=== PATIENT | male | born 1955 | race Hispanic/Latino ===

== ENCOUNTER 2020-05-26 18:07 | Inpatient (IN) | payer MEDICARE ==
[~2020-05-26] VITALS: Ht 165.1 cm; Wt 81.9 kg
[2020-05-26] MEDS ORDERED: DILTIAZEM HCL 5 MG/ML 10 ML VIAL IV ONE ×2 (18:09→20:20)
[2020-05-26] MEDS ORDERED: DILTIAZEM HCL 125 MG/25 ML VIAL IV ONE (18:56)
[2020-05-26] MEDS ORDERED: CEFTRIAXONE SODIUM 1 GM ONE (19:00)
[2020-05-26 19:46] LABS: BASOPHILS % (AUTO) 0.2 % (0.0-5.0); HEMATOCRIT 43.3 % (42-54); MEAN CORPUSCULAR HEMOGLOBIN 29.3 pg (27.0-33.0); MEAN CORPUSCULAR HGB CONC 33.9 g/dL (32.0-36.0); MEAN CORPUSCULAR VOLUME 86.3 fL (79-99); MONOCYTES % (AUTO) 4.1 % (3.0-13.0); NEUTROPHILS % (AUTO) 89.6 % (40.0-77.0); PLATELET COUNT (AUTO) 348 K/uL (130-400); RED BLOOD CELL COUNT(AUTO) 5.02 MIL/uL (4.50-6.20); WHITE BLOOD COUNT (AUTO) 17.9 K/uL (4.8-10.8)
[2020-05-26 20:03] LABS: ABG BASE EXCESS -6.7 mmol/L (-2.0-3.0); ABG HCO3 17.1 mmol/L (21.0-28.0); ABG OXYGEN SATURATION 98.8 % (95.0-99.0); ABG PCO2 30 mmHg (35-48)
[2020-05-26 20:12] LABS: CREATININE 2.3 mg/dL (0.5-1.5); POTASSIUM 5.2 mmol/L (3.5-5.1)
[2020-05-26] MEDS ORDERED: METHYLPREDNISOLONE SOD SUCC 40MG/ML 1ML ONE (20:19)
[2020-05-26] MEDS ORDERED: ASPIRIN 325 MG TABLET ONE (20:19)
[2020-05-26 20:31] LABS: INR 1.12 (0.85-1.15); PARTIAL THROMBOPLASTIN TIME 33.7 SEC (26.3-35.5)
[2020-05-26 20:38] LABS: ALBUMIN 2.4 g/dL (3.5-5.0); BILIRUBIN,TOTAL 0.7 mg/dL (0.2-1.0); TOTAL PROTEIN, SERUM 7.7 g/dL (6.0-8.3); TROPONIN I 0.27 ng/mL (0.00-0.06)
[2020-05-26] MEDS ORDERED: SODIUM CHLORIDE 0.9% 500ML 500 ML IV ONE (20:42)
[2020-05-26] MEDS ORDERED: LACTULOSE 20 GM/30 ML UDCUP PO PRN (21:00)
[2020-05-26] MEDS ORDERED: METHYLPREDNISOLONE SOD SUCC 40MG/ML 1ML IVP SCH (21:00)
[2020-05-26] MEDS ORDERED: ACETAMINOPHEN 325 MG TAB PO PRN ×2 (21:00)
[2020-05-26] MEDS ORDERED: HYDRALAZINE HCL 20 MG/ML VIAL IV PRN (21:00)
[2020-05-26] MEDS ORDERED: DOXYCYCLINE 100MG+NS 250ML IV SCH (21:00)
[2020-05-26] MEDS ORDERED: ERGOCALCIFEROL (VITAMIN D2) 50,000 UNIT CAPSULE PO ONE (21:00)
[2020-05-26] MEDS: DOXYCYCLINE 100MG+NS 250ML 250 ML IV SCH (21:00)
[2020-05-26] MEDS ORDERED: ONDANSETRON HCL 4 MG/2 ML VIAL IV PRN (21:00)
[2020-05-26] MEDS ORDERED: AZITHROMYCIN 500MG+NS 250ML 250 ML IV ONE (21:04)
[2020-05-26] MEDS ORDERED: DILTIAZEM 125MG+100 ML NS 125 ML IV SCH (21:30)
[2020-05-26] MEDS: CEFTRIAXONE SODIUM 1 GM IVP SCH (22:10)
[2020-05-26 22:21] LABS: MAGNESIUM 2.7 mg/dL (1.80-2.40); PHOSPHORUS 4.7 mg/dL (2.5-4.9)
[2020-05-26 22:59] LABS: APPEARANCE,URINE Turbid (CLEAR); BILIRUBIN,URINE Small (NEGATIVE); COLOR,URINE Dark Yellow (YELLOW); GLUCOSE, URINE (UA) Negative (NEGATIVE); KETONES,URINE Trace mg/dL (NEGATIVE); LEUKOCYTE ESTERASE ,URINE Negative (NEGATIVE); NITRATE,URINE Negative (NEGATIVE); OCCULT BLOOD,URINE Small (NEGATIVE); PROTEIN,URINE POS 2+ mg/dL (NEGATIVE)
[2020-05-26] MEDS ORDERED: FUROSEMIDE 10 MG/ML 2ML VIAL ONE (23:04)
[2020-05-26 23:28] LABS: AMORPHOUS SEDIMENT,UR Moderate /LPF (None Seen); BACTERIA,URINE Few /HPF (None Seen); MUCUS,URINE Few LPF (None Seen); RBC,URINE 0-1 /HPF (0-1); SQUAMOUS EPITHELIAL CELL,UR Few /HPF (0-2); WBC,URINE None Seen /HPF (0-1)
[2020-05-27 01:39] LABS: HEMOGLOBIN A1C 6.5 % (4.0-6.0)
[2020-05-27] MEDS ORDERED: ENOXAPARIN SODIUM 60 MG/0.6 ML SQ ONE ×2 (04:44→10:37)
[2020-05-27] MEDS ORDERED: DOXYCYCLINE 100MG+NS 250ML 250 ML IV ONE ×2 (04:44→18:46)
[2020-05-27] MEDS ORDERED: METHYLPREDNISOLONE SOD SUCC 125MG/2ML VIAL ONE ×2 (04:44→21:35)
[2020-05-27] MEDS ORDERED: DILTIAZEM HCL 60 MG TABLET ONE ×2 (08:07→20:29)
[2020-05-27] MEDS ORDERED: DILTIAZEM HCL 60 MG TABLET PO SCH (08:15)
[2020-05-27 08:46] LABS: POTASSIUM 5.1 mmol/L (3.5-5.1); THYROID STIMULATING HORMONE 0.9 uIU/mL (0.36-3.74)
[2020-05-27] MEDS ORDERED: CEFTRIAXONE SODIUM 1 GM ONE ×2 (08:49→21:35)
[2020-05-27] MEDS ORDERED: ASCORBIC ACID 500 MG TAB ONE (08:49)
[2020-05-27] MEDS ORDERED: ZINC SULFATE 220 CAPSULE ONE (08:49)
[2020-05-27] MEDS ORDERED: SODIUM CHLORIDE 0.9% 100 ML IV ONE (08:50)
[2020-05-27] MEDS: ASCORBIC ACID 500 MG TAB PO SCH (09:00)
[2020-05-27] MEDS: ZINC SULFATE 220 CAPSULE PO SCH (09:00)
[2020-05-27] MEDS ORDERED: ENOXAPARIN SODIUM 40 MG/0.4 ML SYRINGE SQ SCH (09:00)
[2020-05-27] MEDS ORDERED: FUROSEMIDE 10 MG/ML 4ML VIAL IV SCH (09:30)
[2020-05-27 09:56] LABS: CRP QUANTITATIVE 348.7 mg/L (0.00-9.0)
[2020-05-27] MEDS ORDERED: PHARMACY COMMUNICATION MISC SCH (10:30)
[2020-05-27] MEDS ORDERED: ENOXAPARIN SODIUM 1 MG/KG SQ SCH (10:30)
[2020-05-27] MEDS ORDERED: FUROSEMIDE 10 MG/ML 4ML VIAL ONE (10:37)
[2020-05-27] MEDS ORDERED: ENOXAPARIN SODIUM 60 MG/0.6 ML SQ SCH (10:45)
[2020-05-27] MEDS: METOPROLOL TARTRATE 50 MG TAB PO SCH ×2 (12:00→21:00)
[2020-05-27 13:39] LABS: PROTEIN,URINE RANDOM 195.5 mg/dL (0-11.9)
--- NOTE | 2020-05-27 15:50 | NUR ---
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 QUIROGA, SPOUSE TO PROVIDE TRANSPORT Addendum: 05/27/20 at 1553 by ALLISON VO RN CM Amended: Links added.
[2020-05-27] MEDS: METHYLPREDNISOLONE SOD SUCC 125MG/2ML VIAL IVP SCH ×2 (17:00→22:10)
[2020-05-27] MEDS: DOXYCYCLINE 100MG+NS 250ML 250 ML IV SCH (21:00)
[2020-05-27] MEDS ORDERED: METOPROLOL TARTRATE 50 MG TAB ONE (21:35)
[2020-05-27 21:36] VITALS: BP 118/74
--- NOTE | 2020-05-27 21:36 | NUR ---
MEDS SHIFT ASSESSMENT DONE, PLEASE REFER TO CHART. DUE MEDS ADMINISTERED, TOLERATED WELL. RE-POSITIONED COMFORTABLY IN BED. WILL MONITOR CLOSELY. Addendum: 05/28/20 at 0319 by ELLEN CANDELARIA RN RN Amended: Links added.
[2020-05-27] MEDS: CEFTRIAXONE SODIUM 1 GM IVP SCH (22:10)
[2020-05-27] MEDS ORDERED: ERGOCALCIFEROL (VITAMIN D2) 50,000 UNIT CAPSULE ONE (22:38)
--- NOTE | 2020-05-28 02:00 | NUR ---
ROUNDS PT ASLEEP ON BIPAP. O2 SAT AT 99%, HR=90 BPM. KEPT UNDISTURBED FOR NOW. WILL MONITOR PT.
[2020-05-28 04:00] VITALS: BP 128/56
[2020-05-28] MEDS ORDERED: METHYLPREDNISOLONE SOD SUCC 125MG/2ML VIAL ONE ×3 (04:16→20:21)
--- NOTE | 2020-05-28 04:46 | NUR ---
DRAW AWAKENED PT FOR MEDS AND BLOOD DRAW. TOLERATED MEDS. BLOOD SPECIMEN SENT TO LAB FOR ANALYSIS. KEPT RESTED. POSITIONED COMFORTABLY IN BED. FOR MORE CARE.
[2020-05-28] MEDS: METHYLPREDNISOLONE SOD SUCC 125MG/2ML VIAL IVP SCH ×4 (05:00→22:18)
[2020-05-28 05:34] LABS: HEMATOCRIT 41.7 % (42-54); MEAN CORPUSCULAR HEMOGLOBIN 29.1 pg (27.0-33.0); MEAN CORPUSCULAR HGB CONC 33.1 g/dL (32.0-36.0); NUCLEATED RED BLOOD CELLS 0.1 % (0.0-0.19); PLATELET COUNT (AUTO) 386 K/uL (130-400); RED BLOOD CELL COUNT(AUTO) 4.74 MIL/uL (4.50-6.20); RED CELL DISTRIBUTION WIDTH 13.9 % (11.0-15.5); WHITE BLOOD COUNT (AUTO) 20.8 K/uL (4.8-10.8)
[2020-05-28 05:43] LABS: CREATININE 1.4 mg/dL (0.5-1.5); PHOSPHORUS 3.9 mg/dL (2.5-4.9); POTASSIUM 4.2 mmol/L (3.5-5.1)
[2020-05-28 06:27] LABS: CRP QUANTITATIVE 172.5 mg/L (0.00-9.0)
[2020-05-28 06:51] LABS: BAND NEUTROPHILS % (MANUAL) 10 % (0-2); LYMPHOCYTES % (MANUAL) 4 % (22-44); MAN.DIFF COMMENT-IMPRESSION MANUAL DIFFERENTIAL; MONOCYTES % (MANUAL) 2 % (2-9); PLATELET MORPHOLOGY COMMENT ADEQUATE; SEGMENTED NEUTROPHILS % 84 % (40-70)
--- NOTE | 2020-05-28 08:10 | NUR ---
ASSUMED CARE OF PATIENT RECEIVED REPORT FROM NIGHT NURSE, SAMMI COCHRAN. PATIENT O X 3. HOB 45 DEGREES. RESPIRATIONS LABORED AT TIMES OF EXERTION INCLUDING TALKING AND REPOSITIONING INCLUDING LEFT AND RIGHT SIDE LYING POSITION. OXYGEN @ 80% BIPAP. NOTED TO DESATURATED WHEN REPOSITIONED OR EXERTION INCLUDING TALKING O2 SATURATIONS NOTED TO DROP TO 80'S. PT INSTRUCTED TO DO RELAXATION BREATHING EXERCISES. PT VOIDS VIA URINAL. REPOSITIONED PATIENT IN THE BED. BED IN LOWEST POSITION. CALLBELL IN REACH. SIDE RAILS UP X 2.
[2020-05-28 08:40] VITALS: BP 126/73
[2020-05-28] MEDS: ASCORBIC ACID 500 MG TAB PO SCH (09:00)
[2020-05-28] MEDS: ENOXAPARIN SODIUM 100 MG/1 ML SQ SCH ×2 (09:00→22:17)
[2020-05-28] MEDS: METOPROLOL TARTRATE 50 MG TAB PO SCH ×2 (09:00→21:00)
[2020-05-28] MEDS ORDERED: FUROSEMIDE 10 MG/ML 4ML VIAL IV SCH (09:00)
[2020-05-28] MEDS: DOXYCYCLINE 100MG+NS 250ML 250 ML IV SCH ×2 (09:00→21:00)
[2020-05-28] MEDS ORDERED: ENOXAPARIN SODIUM 1 MG/KG SQ SCH (09:00)
[2020-05-28] MEDS: ZINC SULFATE 220 CAPSULE PO SCH (09:00)
[2020-05-28] MEDS: CEFTRIAXONE SODIUM 1 GM IVP SCH ×2 (09:00→21:00)
[2020-05-28] MEDS ORDERED: ENOXAPARIN SODIUM 100 MG/1 ML SQ ONE ×2 (11:23→22:15)
[2020-05-28] MEDS ORDERED: DOXYCYCLINE 100MG+NS 250ML 250 ML IV ONE (11:23)
[2020-05-28] MEDS ORDERED: METOPROLOL TARTRATE 50 MG TAB ONE ×2 (11:24→20:21)
[2020-05-28] MEDS ORDERED: FUROSEMIDE 10 MG/ML 4ML VIAL ONE (11:24)
[2020-05-28] MEDS ORDERED: CEFTRIAXONE SODIUM 1 GM ONE ×2 (11:25→20:21)
--- NOTE | 2020-05-28 12:00 | NUR ---
ASSISTED TO BEDSIDE COMMODE ASSISTED PATIENT TO SIT ON BEDSIDE COMMODE PER PATIENT REQUEST. PT NOTED TO HAVE A LARGE LIQUID STOOL. PERICARE RENDERED. ASSISTED PATIENT TO GET BACK IN BED. PT TOLERATED WELL. SOB AT TIMES OF EXERTION. O2 SATS MANTAINED 88-98%. PT STATES, "I FEEL A LOT BETTER GOING IN THE BEDSIDE COMMODE THAN IN THE BED."
--- NOTE | 2020-05-28 12:15 | NUR ---
ASSISTED TO BED ASSISTED PATIENT BACK TO BED. TOLERATED WELL. BED LOWEST POSITION, CALLBELL PLACED IN REACH. SIDE RAILS UP X 2.
[2020-05-28 12:30] VITALS: BP 114/72
--- NOTE | 2020-05-28 15:00 | NUR ---
REPORT GIVEN TO ED NURSE, SAMMI SALDANA ASSUMED CARE OF PATIENT.
[2020-05-28] MEDS ORDERED: DILTIAZEM HCL 5 MG/ML 10 ML VIAL IV ONE (18:18)
[2020-05-28] MEDS ORDERED: DOXYCYCLINE HYCLATE 100 MG TABLET PO ONE (20:21)
[2020-05-29 04:15] LABS: HEMATOCRIT 44.6 % (42-54); MEAN CORPUSCULAR HEMOGLOBIN 28.8 pg (27.0-33.0); MEAN CORPUSCULAR VOLUME 87.5 fL (79-99); NUCLEATED RED BLOOD CELLS 0.1 % (0.0-0.19); RED BLOOD CELL COUNT(AUTO) 5.1 MIL/uL (4.50-6.20); RED CELL DISTRIBUTION WIDTH 13.9 % (11.0-15.5); WHITE BLOOD COUNT (AUTO) 20.1 K/uL (4.8-10.8)
[2020-05-29] MEDS ORDERED: METHYLPREDNISOLONE SOD SUCC 40MG/ML 1ML ONE (04:16)
[2020-05-29] MEDS ORDERED: METHYLPREDNISOLONE SOD SUCC 125MG/2ML VIAL ONE ×2 (04:19→10:12)
[2020-05-29] MEDS: METHYLPREDNISOLONE SOD SUCC 125MG/2ML VIAL IVP SCH (04:20)
[2020-05-29 04:30] LABS: ALBUMIN 2.3 g/dL (3.5-5.0); BILIRUBIN,TOTAL 0.5 mg/dL (0.2-1.0); CREATININE 1.6 mg/dL (0.5-1.5); CRP QUANTITATIVE 122.7 mg/L (0.00-9.0); POTASSIUM 4.2 mmol/L (3.5-5.1); TOTAL PROTEIN, SERUM 7.2 g/dL (6.0-8.3)
[2020-05-29] MEDS ORDERED: DOXYCYCLINE 100MG+NS 250ML 250 ML IV ONE (08:48)
[2020-05-29] MEDS ORDERED: ASCORBIC ACID 500 MG TAB ONE (08:48)
[2020-05-29] MEDS ORDERED: FUROSEMIDE 10 MG/ML 4ML VIAL ONE (08:49)
[2020-05-29] MEDS ORDERED: APIXABAN 2.5 MG TABLET PO ONE (08:49)
[2020-05-29] MEDS ORDERED: ZINC SULFATE 220 CAPSULE ONE (08:49)
[2020-05-29] MEDS: APIXABAN 5 MG TABLET PO SCH ×2 (09:00→21:00)
[2020-05-29] MEDS: METOPROLOL TARTRATE 50 MG TAB PO SCH ×2 (09:00→21:00)
[2020-05-29] MEDS: FUROSEMIDE 10 MG/ML 2ML VIAL IVP SCH (09:00)
[2020-05-29] MEDS: ASCORBIC ACID 500 MG TAB PO SCH (09:00)
[2020-05-29] MEDS: DOXYCYCLINE 100MG+NS 250ML 250 ML IV SCH ×2 (09:00→21:00)
[2020-05-29] MEDS: CEFTRIAXONE SODIUM 1 GM IVP SCH ×2 (09:00→21:00)
[2020-05-29] MEDS ORDERED: FUROSEMIDE 10 MG/ML 4ML VIAL IV SCH (09:00)
[2020-05-29] MEDS: ZINC SULFATE 220 CAPSULE PO SCH (09:00)
[2020-05-29] MEDS ORDERED: METOPROLOL TARTRATE 50 MG TAB ONE ×2 (09:48→21:31)
[2020-05-29] MEDS ORDERED: METOPROLOL TARTRATE 25 MG TAB ONE (09:49)
[2020-05-29] MEDS ORDERED: ENOXAPARIN SODIUM 100 MG/1 ML SQ ONE (09:50)
[2020-05-29] MEDS ORDERED: SODIUM CHLORIDE 0.9% 50 ML IV ONE (10:07)
[2020-05-29] MEDS ORDERED: CEFTRIAXONE SODIUM 1 GM ONE ×2 (10:07→21:31)
[2020-05-29] MEDS ORDERED: DIAZEPAM 2 MG TAB ONE (12:36)
[2020-05-29] MEDS ORDERED: DOXYCYCLINE HYCLATE 100 MG TABLET PO ONE (21:30)
[2020-05-30] MEDS ORDERED: METHYLPREDNISOLONE SOD SUCC 40MG/ML 1ML ONE (04:18)
[2020-05-30] MEDS: METHYLPREDNISOLONE SOD SUCC 40MG/ML 1ML IVP SCH ×3 (05:12→19:46)
--- NOTE | 2020-05-30 05:20 | NUR ---
NO TELE The patient is currently not being monitored on tele due to the fact that the box is not working. The tech & I have tried everything possible to troubleshoot the monitor with no success. The pump house technician & charge nurse is aware.
[2020-05-30 05:42] VITALS: BP 141/82
[2020-05-30 07:03] LABS: CREATININE 1.7 mg/dL (0.5-1.5); POTASSIUM 4.2 mmol/L (3.5-5.1)
[2020-05-30] MEDS: CEFTRIAXONE SODIUM 1 GM IVP SCH ×2 (08:11→19:45)
[2020-05-30 08:45] VITALS: BP 152/93
[2020-05-30] MEDS: METOPROLOL TARTRATE 50 MG TAB PO SCH ×2 (08:54→19:46)
[2020-05-30] MEDS: ZINC SULFATE 220 CAPSULE PO SCH (08:54)
[2020-05-30] MEDS: APIXABAN 5 MG TABLET PO SCH ×2 (08:54→19:46)
[2020-05-30] MEDS: ASCORBIC ACID 500 MG TAB PO SCH (08:54)
[2020-05-30] MEDS: FUROSEMIDE 10 MG/ML 2ML VIAL IVP SCH (08:55)
[2020-05-30 11:00] VITALS: BP 139/92
[2020-05-30] MEDS: DOXYCYCLINE 100MG+NS 250ML 250 ML IV SCH ×2 (13:12→19:45)
[2020-05-30 16:00] VITALS: BP 132/68
--- NOTE | 2020-05-30 18:16 | NUR ---
Pt alert, pt on bipap 80%, patient is sleeping in bed, will continue to monitor pt, showed no signs and symptoms of distress
[2020-05-30 20:20] VITALS: BP 142/77
[2020-05-31 00:20] VITALS: BP 113/76
[2020-05-31 04:20] VITALS: BP 139/78
[2020-05-31] MEDS: METHYLPREDNISOLONE SOD SUCC 40MG/ML 1ML IVP SCH ×2 (05:08→17:38)
[2020-05-31 05:11] LABS: BASOPHILS % (AUTO) 0.2 % (0.0-5.0); HEMATOCRIT 42.3 % (42-54); LYMPHOCYTES % (AUTO) 1.5 % (21.0-51.0); MEAN CORPUSCULAR HEMOGLOBIN 29.1 pg (27.0-33.0); MEAN CORPUSCULAR HGB CONC 32.6 g/dL (32.0-36.0); MEAN CORPUSCULAR VOLUME 89.1 fL (79-99); MONOCYTES % (AUTO) 1.9 % (3.0-13.0); NEUTROPHILS % (AUTO) 94.5 % (40.0-77.0); PLATELET COUNT (AUTO) 324 K/uL (130-400); RED BLOOD CELL COUNT(AUTO) 4.75 MIL/uL (4.50-6.20); RED CELL DISTRIBUTION WIDTH 13.9 % (11.0-15.5); WHITE BLOOD COUNT (AUTO) 15.1 K/uL (4.8-10.8)
[2020-05-31 05:29] LABS: ALBUMIN 2.3 g/dL (3.5-5.0); BILIRUBIN,TOTAL 0.7 mg/dL (0.2-1.0); CREATININE 1.3 mg/dL (0.5-1.5); CRP QUANTITATIVE 74.2 mg/L (0.00-9.0); POTASSIUM 4.8 mmol/L (3.5-5.1); TOTAL PROTEIN, SERUM 6.8 g/dL (6.0-8.3)
[2020-05-31 08:00] VITALS: BP 162/89
[2020-05-31] MEDS: APIXABAN 5 MG TABLET PO SCH ×2 (09:45→21:16)
[2020-05-31] MEDS: METOPROLOL TARTRATE 50 MG TAB PO SCH ×2 (09:45→21:16)
[2020-05-31] MEDS: CEFTRIAXONE SODIUM 1 GM IVP SCH ×2 (09:46→21:16)
[2020-05-31] MEDS: ZINC SULFATE 220 CAPSULE PO SCH (09:46)
[2020-05-31] MEDS: ASCORBIC ACID 500 MG TAB PO SCH (09:46)
[2020-05-31 11:00] VITALS: BP 135/83
[2020-05-31] MEDS: DOXYCYCLINE 100MG+NS 250ML 250 ML IV SCH ×2 (11:45→21:16)
--- NOTE | 2020-05-31 13:00 | NUR ---
FAMILY NOTIFICATION AND UPDATE SPOKE TO LUCIA IRAHETA. GIVEN PT STATUS UPDATE AND PLAN OF CARE . ALL QUESTIONS ANSWERED. GIVEN PASSWORD FOR CALLS
[2020-05-31 16:00] VITALS: BP 120/63
--- NOTE | 2020-05-31 16:03 | NUR ---
Family notification Addendum for 05/30/2020; Spoke to Nataliia Manzano and made her aware of pt's condition. All questions were answered and all concerns addressed. Verbalized understanding and was very appreciative of call
[2020-05-31] MEDS: FUROSEMIDE 10 MG/ML 2ML VIAL IVP SCH (21:16)
[2020-05-31 22:56] VITALS: BP 139/71
[2020-06-01 00:54] VITALS: BP 122/68
[2020-06-01] MEDS: METHYLPREDNISOLONE SOD SUCC 40MG/ML 1ML IVP SCH (05:37)
[2020-06-01 05:43] VITALS: BP 145/75
[2020-06-01 07:00] LABS: BASOPHILS % (AUTO) 0.1 % (0.0-5.0); EOSINOPHILS % (AUTO) 0.1 % (0.0-8.0); HEMATOCRIT 46.1 % (42-54); LYMPHOCYTES % (AUTO) 1.8 % (21.0-51.0); MEAN CORPUSCULAR HEMOGLOBIN 28.9 pg (27.0-33.0); MEAN CORPUSCULAR HGB CONC 32.3 g/dL (32.0-36.0); MEAN CORPUSCULAR VOLUME 89.5 fL (79-99); MONOCYTES % (AUTO) 1.5 % (3.0-13.0); NEUTROPHILS % (AUTO) 94.9 % (40.0-77.0); PLATELET COUNT (AUTO) 377 K/uL (130-400); RED BLOOD CELL COUNT(AUTO) 5.15 MIL/uL (4.50-6.20); RED CELL DISTRIBUTION WIDTH 13.6 % (11.0-15.5); WHITE BLOOD COUNT (AUTO) 16.5 K/uL (4.8-10.8)
[2020-06-01 07:07] LABS: ALBUMIN 2.4 g/dL (3.5-5.0); BILIRUBIN,TOTAL 0.6 mg/dL (0.2-1.0); CREATININE 1.2 mg/dL (0.5-1.5); CRP QUANTITATIVE 152.1 mg/L (0.00-9.0); POTASSIUM 4.7 mmol/L (3.5-5.1); TOTAL PROTEIN, SERUM 7.2 g/dL (6.0-8.3)
[2020-06-01 08:00] VITALS: BP 150/75
[2020-06-01] MEDS: CEFTRIAXONE SODIUM 1 GM IVP SCH ×2 (10:01→20:21)
[2020-06-01] MEDS: ASCORBIC ACID 500 MG TAB PO SCH (10:02)
[2020-06-01] MEDS: APIXABAN 5 MG TABLET PO SCH ×2 (10:02→20:21)
[2020-06-01] MEDS: FUROSEMIDE 10 MG/ML 2ML VIAL IVP SCH ×2 (10:02→20:21)
[2020-06-01] MEDS: ZINC SULFATE 220 CAPSULE PO SCH (10:02)
[2020-06-01] MEDS: METOPROLOL TARTRATE 50 MG TAB PO SCH ×2 (10:04→20:21)
[2020-06-01] MEDS: DOXYCYCLINE 100MG+NS 250ML 250 ML IV SCH (10:05)
[2020-06-01 11:30] VITALS: BP 137/75
[2020-06-01] MEDS ORDERED: METHYLPREDNISOLONE SOD SUCC 40MG/ML 1ML IVP SCH (14:00)
[2020-06-01 15:30] VITALS: BP 152/77
[2020-06-01] MEDS ORDERED: DOXYCYCLINE HYCLATE 100 MG TABLET PO ONE (19:30)
[2020-06-01] MEDS: DOXYCYCLINE HYCLATE 100 MG TABLET PO SCH (20:20)
[2020-06-01] MEDS: METHYLPREDNISOLONE SOD SUCC 125MG/2ML VIAL IVP SCH (20:21)
[2020-06-01 21:32] VITALS: BP 143/89
[2020-06-02] VITALS (7 sets, daily range): BP systolic 131–164; BP diastolic 70–92
[2020-06-02] MEDS: METHYLPREDNISOLONE SOD SUCC 125MG/2ML VIAL IVP SCH ×3 (04:28→20:47)
[2020-06-02 04:43] LABS: BASOPHILS % (AUTO) 0.1 % (0.0-5.0); EOSINOPHILS % (AUTO) 0.1 % (0.0-8.0); HEMATOCRIT 45.3 % (42-54); LYMPHOCYTES % (AUTO) 0.9 % (21.0-51.0); MEAN CORPUSCULAR HEMOGLOBIN 29.3 pg (27.0-33.0); MEAN CORPUSCULAR HGB CONC 33.3 g/dL (32.0-36.0); MEAN CORPUSCULAR VOLUME 87.8 fL (79-99); MONOCYTES % (AUTO) 1.3 % (3.0-13.0); NEUTROPHILS % (AUTO) 96.3 % (40.0-77.0); NUCLEATED RED BLOOD CELLS 0.1 % (0.0-0.19); PLATELET COUNT (AUTO) 282 K/uL (130-400); RED BLOOD CELL COUNT(AUTO) 5.16 MIL/uL (4.50-6.20); RED CELL DISTRIBUTION WIDTH 13.7 % (11.0-15.5); WHITE BLOOD COUNT (AUTO) 17.3 K/uL (4.8-10.8)
[2020-06-02 05:11] LABS: ALBUMIN 2.3 g/dL (3.5-5.0); BILIRUBIN,TOTAL 0.6 mg/dL (0.2-1.0); CREATININE 1.2 mg/dL (0.5-1.5); POTASSIUM 4.7 mmol/L (3.5-5.1); TOTAL PROTEIN, SERUM 6.7 g/dL (6.0-8.3)
[2020-06-02 05:55] LABS: CRP QUANTITATIVE 191.9 mg/L (0.00-9.0)
[2020-06-02] MEDS: FUROSEMIDE 10 MG/ML 2ML VIAL IVP SCH ×2 (08:33→20:47)
[2020-06-02] MEDS: CEFTRIAXONE SODIUM 1 GM IVP SCH (08:33)
[2020-06-02] MEDS: METOPROLOL TARTRATE 50 MG TAB PO SCH ×2 (08:34→20:47)
[2020-06-02] MEDS: ASCORBIC ACID 500 MG TAB PO SCH (08:34)
[2020-06-02] MEDS: APIXABAN 5 MG TABLET PO SCH ×2 (08:34→20:47)
[2020-06-02] MEDS: ZINC SULFATE 220 CAPSULE PO SCH (08:34)
[2020-06-02] MEDS: DOXYCYCLINE HYCLATE 100 MG TABLET PO SCH ×2 (08:34→20:47)
--- NOTE | 2020-06-02 12:38 | NUR ---
RDSCREEN - LOS X 7 Pt positive for COVID-19 infection. Heart healthy diet order. Poor PO intake. No report of GI distress. WBC 17.3, BG 130, LDH 989, Alb 2.3. Vitamin C, Zinc supplementation in place. LBM 05/28/20. Obesity Class I. Recommend 60mL ProMod BID Recommend 500mg Vit C BID If poor PO persists, Recommend altered means nutrition. RD to continue to monitor. Please notify as additional nutrition concerns arise. Thank you.
[2020-06-02] MEDS ORDERED: PHARMACY COMMUNICATION MISC SCH (14:00)
[2020-06-02] MEDS ORDERED: REMDESIVIR (EUA) 520 100 MG in SODIUM CHLORIDE 0.9% 250 ML IV ONE (16:00)
[2020-06-02] MEDS ORDERED: REMDESIVIR (EUA) 520 100 MG VIAL IV ONE (16:00)
[2020-06-03] VITALS (9 sets, daily range): BP systolic 129–200; BP diastolic 68–96
[2020-06-03] MEDS: METHYLPREDNISOLONE SOD SUCC 125MG/2ML VIAL IVP SCH ×3 (05:46→22:18)
[2020-06-03 06:57] LABS: ALBUMIN 2.4 g/dL (3.5-5.0); BILIRUBIN,TOTAL 0.6 mg/dL (0.2-1.0); CREATININE 1.4 mg/dL (0.5-1.5); CRP QUANTITATIVE 134.2 mg/L (0.00-9.0); POTASSIUM 4.2 mmol/L (3.5-5.1); TOTAL PROTEIN, SERUM 6.7 g/dL (6.0-8.3)
[2020-06-03] MEDS: METOPROLOL TARTRATE 50 MG TAB PO SCH ×2 (08:59→22:10)
[2020-06-03] MEDS: APIXABAN 5 MG TABLET PO SCH ×2 (08:59→22:10)
[2020-06-03] MEDS: ASCORBIC ACID 500 MG TAB PO SCH (08:59)
[2020-06-03] MEDS: DOXYCYCLINE HYCLATE 100 MG TABLET PO SCH ×2 (08:59→22:10)
[2020-06-03] MEDS ORDERED: COMPOUND IV REFRIGERATED 1 EACH IVSOLN MISC PRN (12:30)
[2020-06-03] MEDS: ZINC SULFATE 220 CAPSULE PO SCH (14:40)
[2020-06-03] MEDS ORDERED: REMDESIVIR (EUA) 520 100 MG VIAL IV ONE (16:00)
[2020-06-03] MEDS: REMDESIVIR (EUA) 520 100 MG in SODIUM CHLORIDE 0.9% 250 ML IV SCH (17:31)
[2020-06-03] MEDS ORDERED: METOPROLOL TARTRATE 1 MG/ML 5ML VIAL IV ONE ×2 (21:24→21:57)
[2020-06-04] VITALS (10 sets, daily range): BP systolic 119–145; BP diastolic 63–99
[2020-06-04] MEDS ORDERED: METOPROLOL TARTRATE 50 MG TAB PO SCH (00:45)
[2020-06-04] MEDS ORDERED: DILTIAZEM HCL 5 MG/ML 10 ML VIAL IV SCH (02:15)
[2020-06-04] MEDS ORDERED: DILTIAZEM HCL 5 MG/ML 10 ML VIAL IV ONE (02:16)
[2020-06-04] MEDS ORDERED: SODIUM CHLORIDE 0.9% 100 ML IV ONE (03:55)
[2020-06-04] MEDS: DILTIAZEM HCL 125 MG/25 ML 125 MG in SODIUM CHLORIDE 0.9% 100 ML IV SCH ×2 (04:18→15:51)
--- NOTE | 2020-06-04 04:23 | NUR ---
Afib RVR I received a phone call from TELE at 2144 that the patient HR was elevated to 150s-160s per Teacher Dancing it was Sinus Tach. However, 15 minutes later I was informed that the rhythm was Afib RVR which the patient has a hx of. He had been given his 75 mg metoprolol PO medication. Therefore, final tester semiconductor development technician was informed about the pt HR sustaining above 150s and orders for lopressor 5mgx3 IV was given with 5 minutes between each dose per MD order. He also ordered an additional 50mg PO to be given if the pt HR was still not controlled. All of the previous orders were carried out & the pt remained symptomatic with a HR maintaining in the 140s. Considering that, the Insecticide Sprayer semiconductor development technician was paged again about the HR and Afib RVR at 01:29 & 01:45 in which the MD did not return either phone call. Therefore, the hospitalist Abi was called to address the issue. An EKG was ordered which confirmed Afib RVR & Cardizem push 20mg was ordered and given to the patient as well. He responded to the Cardizem 20mg push in which his HR was maintaining in the 70s & 80s. 30 minutes after the cardizem was given, he begin to complain of Chest pain 8/10 that felt sharp and aching but it was not radiating (Vitals were stable BP 123/67 HR 116 & another EKG was done which was the same as before Afib RVR). @0322 Nitrox1 was given BP 123/67, @0330 Nitrox2 Given CP 5 BP 129/82, @0340 136/82 CP was 4. @0400 patient reported no Chest pain at all. His HR did rise back to the 130s. Therefore, the cardizem drip was initiated @0415 with BP stable 128/71 & HR 132. The drip was started @5mls per hour.
[2020-06-04] MEDS ORDERED: NITROGLYCERIN 0.4 MG SL TAB SL PRN (04:30)
--- NOTE | 2020-06-04 05:04 | NUR ---
Cardizem Titrated Patient BP is 128/74 HR 132 & the Cardizem drip was titrated up to 10mls/hr per protocol.
[2020-06-04] MEDS: METHYLPREDNISOLONE SOD SUCC 125MG/2ML VIAL IVP SCH ×3 (06:08→20:21)
[2020-06-04] MEDS: METOPROLOL TARTRATE 50 MG TAB PO SCH ×2 (06:57→20:21)
[2020-06-04] MEDS: ASCORBIC ACID 500 MG TAB PO SCH (08:30)
[2020-06-04] MEDS: APIXABAN 5 MG TABLET PO SCH ×2 (08:31→20:21)
[2020-06-04] MEDS: DOXYCYCLINE HYCLATE 100 MG TABLET PO SCH ×2 (08:31→20:20)
[2020-06-04 08:46] LABS: MEAN CORPUSCULAR HEMOGLOBIN 29.7 pg (27.0-33.0); MEAN CORPUSCULAR HGB CONC 33.3 g/dL (32.0-36.0); MEAN CORPUSCULAR VOLUME 89.1 fL (79-99); PLATELET COUNT (AUTO) 313 K/uL (130-400); RED BLOOD CELL COUNT(AUTO) 5.39 MIL/uL (4.50-6.20); RED CELL DISTRIBUTION WIDTH 13.8 % (11.0-15.5); WHITE BLOOD COUNT (AUTO) 25.6 K/uL (4.8-10.8)
[2020-06-04 09:17] LABS: CRP QUANTITATIVE 76.5 mg/L (0.00-9.0)
[2020-06-04 11:23] LABS: ALBUMIN 2.3 g/dL (3.5-5.0); BILIRUBIN,TOTAL 0.6 mg/dL (0.2-1.0); CREATININE 1.2 mg/dL (0.5-1.5); MAGNESIUM 2.7 mg/dL (1.80-2.40); POTASSIUM 4.5 mmol/L (3.5-5.1)
[2020-06-04 11:26] LABS: MAN.DIFF COMMENT-IMPRESSION MANUAL DIFFERENTIAL; MONOCYTES % (MANUAL) 2 % (2-9); PLATELET MORPHOLOGY COMMENT ADEQUATE; SEGMENTED NEUTROPHILS % 98 % (40-70)
[2020-06-04] MEDS: ZINC SULFATE 220 CAPSULE PO SCH (12:13)
[2020-06-04] MEDS: REMDESIVIR (EUA) 520 100 MG in SODIUM CHLORIDE 0.9% 250 ML IV SCH (14:55)
[2020-06-04] MEDS ORDERED: REMDESIVIR (EUA) 520 100 MG VIAL IV ONE (16:00)
--- NOTE | 2020-06-04 18:37 | NUR ---
DR BRAY WAS NOTIFY THAT PT CONVERTED TO SR AT 1630. HE ORDER HOLD VAMSI [place] FOR NOW AND CONTINUE WITH CURRENT METOPROLOL TREATMENT.
[2020-06-04 19:22] LABS: ABG BASE EXCESS -1.4 mmol/L (-2.0-3.0); ABG HCO3 23.8 mmol/L (21.0-28.0); ABG OXYGEN SATURATION 87.4 % (95.0-99.0); ABG PCO2 42 mmHg (35-48)
--- NOTE | 2020-06-04 19:26 | NUR ---
DR BRAY NOTIFY ABOUT PT O2 SAT OF 85%, PER DR VILLARREAL PLACE PT ON HIGH FLOW RESPIRATORY THERAPY WITH NRB MASK, IF NO IMPROVEMENT CONNECT TO C-PAP AT 10.
[2020-06-05] VITALS (31 sets, daily range): BP systolic 87–275; BP diastolic 45–274
--- NOTE | 2020-06-05 02:30 | NUR ---
Non-Compliant Patient Patient is being non-compliant with his oxygen. He continues to remove it after being educated on numerous occasions the importance of keeping it on. The charge nurse was informed & she reached out to his Nataliia about the situation at hand & the consequences of his actions such as being intubated in case of an emergency. All measures have been taken to help him. He is being closely monitored to the best of our ability
[2020-06-05] MEDS: METHYLPREDNISOLONE SOD SUCC 125MG/2ML VIAL IVP SCH ×4 (06:00→21:39)
[2020-06-05] MEDS: METOPROLOL TARTRATE 50 MG TAB PO SCH ×2 (06:28→21:29)
[2020-06-05] MEDS ORDERED: DILTIAZEM HCL 60 MG TABLET PO SCH (07:11)
[2020-06-05] MEDS ORDERED: METOPROLOL TARTRATE 50 MG TAB PO SCH (07:11)
--- NOTE | 2020-06-05 08:02 | NUR ---
Afib RVR Patient converted to Afib RVR @5am this morning. The patient had 2 well working IVs at 3am when they were flushed. However, when they were flushed at the time the Cardizem drip was about to be initiated, they were infiltrated. Numerous nurses attempted to start an IV on him with no success. An ultra sound guided iv was attempted as well with no success. The hospitalist & first assistant on the case were informed of the situation. The hospitalist ordered a STAT PICC line to be placed & first assistant ordered an extra 50mg of metoprolol & 30 mg of cardizem to be given to help with rate control. The orders were carried out and at 739am the patient converted back to SR. However, his still does not have IV access
[2020-06-05] MEDS: ASCORBIC ACID 500 MG TAB PO SCH (09:00)
[2020-06-05] MEDS: DOXYCYCLINE HYCLATE 100 MG TABLET PO SCH ×2 (09:00→21:29)
[2020-06-05 09:01] LABS: BASOPHILS % (AUTO) 0.2 % (0.0-5.0); HEMATOCRIT 45.4 % (42-54); LYMPHOCYTES % (AUTO) 0.7 % (21.0-51.0); MEAN CORPUSCULAR HEMOGLOBIN 29.5 pg (27.0-33.0); MEAN CORPUSCULAR HGB CONC 33.5 g/dL (32.0-36.0); MONOCYTES % (AUTO) 2.6 % (3.0-13.0); NEUTROPHILS % (AUTO) 95.7 % (40.0-77.0); PLATELET COUNT (AUTO) 290 K/uL (130-400); RED BLOOD CELL COUNT(AUTO) 5.16 MIL/uL (4.50-6.20); RED CELL DISTRIBUTION WIDTH 13.7 % (11.0-15.5)
[2020-06-05 09:08] LABS: WHITE BLOOD COUNT (AUTO) 32.5 K/uL (4.8-10.8)
[2020-06-05 09:21] LABS: INR 1.35 (0.85-1.15); PARTIAL THROMBOPLASTIN TIME 27.8 SEC (26.3-35.5); PROTHROMBIN TIME 14.4 SEC (9.6-11.6)
[2020-06-05 09:24] LABS: CREATININE 1.3 mg/dL (0.5-1.5); CRP QUANTITATIVE 121.9 mg/L (0.00-9.0); POTASSIUM 4.1 mmol/L (3.5-5.1)
[2020-06-05 09:53] LABS: MAN.DIFF COMMENT-IMPRESSION MANUAL DIFFERENTIAL; MONOCYTES % (MANUAL) 1 % (2-9); PLATELET MORPHOLOGY COMMENT ADEQUATE; SEGMENTED NEUTROPHILS % 99 % (40-70)
--- NOTE | 2020-06-05 10:34 | NUR ---
Patient found on the floor, pulseless and unresponsive. Code immediately called and CPR initiated. Pt intubated and pulse later found. Primary MD made aware and notified family of status. Per team, pt will now be a DNR and moved to the ICU. SHOT GRINDER OPERATOR Inga coordinating transfer
[2020-06-05] MEDS: CEFEPIME HCL 2 GM VIAL IVP SCH ×2 (10:45→21:39)
[2020-06-05] MEDS: LINEZOLID 600 MG/ISO-OSM 300 ML IV SCH ×2 (10:45→21:40)
--- NOTE | 2020-06-05 10:45 | NUR ---
PT ARRIVED TO UNIT VIA BED W/VENTILATOR, ACCOMPANIED W/RN AND RT. BELONGINGS AT BEDSIDE. PT HOOKED UP TO ICU MONITORS AND ASSUMED CARE. DR. VILLARREAL AT BEDSIDE AT THIS TIME GIVING VERBAL ORDERS.
[2020-06-05] MEDS ORDERED: FENTANYL CITRATE PF 0.05 MG/ML 1,000 MCG in SODIUM CHLORIDE 0.9% 100 ML IVPB SCH (11:00)
[2020-06-05] MEDS ORDERED: MIDAZOLAM HCL 50 MG in SODIUM CHLORIDE 0.9% 50 ML IV SCH (11:00)
[2020-06-05] MEDS ORDERED: SODIUM CHLORIDE 0.9% 500ML 500 ML IV ONE ×2 (11:07→11:37)
[2020-06-05] MEDS ORDERED: MIDAZOLAM 50MG-0.9% NS 50ML 50 ML BAG IV SCH (11:15)
[2020-06-05] MEDS ORDERED: FENTANYL CITRATE PF 0.05 MG/ML 1,000 MCG in SODIUM CHLORIDE 0.9% 100 ML PRN (11:15)
[2020-06-05] MEDS: MIDAZOLAM 50MG-0.9% NS 50ML 50 ML IV SCH ×2 (11:24→18:17)
[2020-06-05] MEDS: FENTANYL 2500MCG+NS 250ML 250 ML IV PRN (11:25)
[2020-06-05] MEDS: VASOPRESSIN 20 UNITS in SODIUM CHLORIDE 0.9% 100 ML IV SCH (11:30)
[2020-06-05] MEDS: ROCURONIUM BROMIDE 100 MG in SODIUM CHLORIDE 0.9% 100 ML IV SCH ×2 (11:31→15:05)
[2020-06-05 11:51] LABS: CREATININE 1.9 mg/dL (0.5-1.5); POTASSIUM 4.9 mmol/L (3.5-5.1)
[2020-06-05] MEDS ORDERED: SODIUM CHLORIDE 0.9% 1000ML 1,000 ML IV ONE (11:56)
[2020-06-05 11:57] LABS: BASOPHILS % (AUTO) 0.3 % (0.0-5.0); HEMATOCRIT 38.4 % (42-54); LYMPHOCYTES % (AUTO) 0.9 % (21.0-51.0); MEAN CORPUSCULAR HEMOGLOBIN 29.9 pg (27.0-33.0); MEAN CORPUSCULAR HGB CONC 32.6 g/dL (32.0-36.0); MEAN CORPUSCULAR VOLUME 91.9 fL (79-99); NEUTROPHILS % (AUTO) 91.9 % (40.0-77.0); NUCLEATED RED BLOOD CELLS 0.1 % (0.0-0.19); PLATELET COUNT (AUTO) 236 K/uL (130-400); RED BLOOD CELL COUNT(AUTO) 4.18 MIL/uL (4.50-6.20); RED CELL DISTRIBUTION WIDTH 14.1 % (11.0-15.5)
[2020-06-05 12:00] LABS: ALBUMIN 1.5 g/dL (3.5-5.0); BILIRUBIN,TOTAL 0.7 mg/dL (0.2-1.0); TOTAL PROTEIN, SERUM 4.4 g/dL (6.0-8.3)
[2020-06-05] MEDS: ZINC SULFATE 220 CAPSULE PO SCH (12:00)
[2020-06-05 12:17] LABS: WHITE BLOOD COUNT (AUTO) 31.7 K/uL (4.8-10.8)
[2020-06-05] MEDS ORDERED: FENTANYL 2500MCG+NS 250ML 250 ML IV SCH (13:00)
[2020-06-05] MEDS ORDERED: MIDAZOLAM 50MG-0.9% NS 50ML 50 ML IV SCH (13:00)
--- NOTE | 2020-06-05 15:55 | NUR ---
PT PRONED PER DR. HAQ T/O.
[2020-06-05] MEDS ORDERED: REMDESIVIR (EUA) 520 100 MG VIAL IV ONE (16:00)
[2020-06-05] MEDS: HEPARIN 25000 UNITS/250 ML D5W 250 ML IV SCH (16:43)
[2020-06-05] MEDS: REMDESIVIR (EUA) 520 100 MG in SODIUM CHLORIDE 0.9% 250 ML IV SCH (16:43)
[2020-06-05 18:14] LABS: ABG BASE EXCESS -5.8 mmol/L (-2.0-3.0); ABG HCO3 22.5 mmol/L (21.0-28.0); ABG OXYGEN SATURATION 86.2 % (95.0-99.0); ABG PCO2 55 mmHg (35-48)
[2020-06-05] MEDS: NOREPINEPHRINE 4MG/NS 250ML 250 ML IV SCH (18:18)
[2020-06-05] MEDS: METOPROLOL TARTRATE 1 MG/ML 5ML VIAL IV SCH (21:39)
[2020-06-05 22:06] LABS: ABG HCO3 20.4 mmol/L (21.0-28.0); ABG OXYGEN SATURATION 87.8 % (95.0-99.0); ABG PCO2 43 mmHg (35-48)
--- NOTE | 2020-06-05 23:24 | NUR ---
LAB Results MD notified of pt's Lactic Acid and ABG results. New orders to draw ABG at 0700 and decrease PEEP to 10. Pt had a run of RVRs along with elevated pulse rate in the 150s. IV Metoprolol given-effective Levophed and Vasopressin titrated for effectiveness in stabilizing BP. Addendum: 06/05/20 at 5298 by CONNIE WAN RN RN Amended: Links added.
[2020-06-06] VITALS (95 sets, daily range): BP systolic 13–147; BP diastolic 12–98
[2020-06-06] MEDS ORDERED: ROCURONIUM BROMIDE 10MG/1ML 5ML VL ONE (02:07)
[2020-06-06] MEDS: ROCURONIUM BROMIDE 100 MG in SODIUM CHLORIDE 0.9% 100 ML IV SCH ×2 (02:34→11:57)
[2020-06-06] MEDS: METHYLPREDNISOLONE SOD SUCC 125MG/2ML VIAL IVP SCH ×3 (06:10→18:21)
[2020-06-06] MEDS: METOPROLOL TARTRATE 1 MG/ML 5ML VIAL IV SCH (06:11)
[2020-06-06 07:55] LABS: ABG BASE EXCESS -7.5 mmol/L (-2.0-3.0); ABG HCO3 19.3 mmol/L (21.0-28.0); ABG OXYGEN SATURATION 91.2 % (95.0-99.0); ABG PCO2 44 mmHg (35-48)
[2020-06-06 08:04] LABS: CREATININE 2.9 mg/dL (0.5-1.5)
[2020-06-06] MEDS: ASCORBIC ACID 500 MG TAB PO SCH (08:49)
[2020-06-06] MEDS: METOPROLOL TARTRATE 50 MG TAB PO SCH (08:49)
[2020-06-06] MEDS: DOXYCYCLINE HYCLATE 100 MG TABLET PO SCH (08:49)
[2020-06-06] MEDS ORDERED: ESMOLOL HCL 2,500 MG in SODIUM CHLORIDE 0.9% 250 ML IV SCH (09:15)
[2020-06-06 09:54] LABS: ALBUMIN 1.7 g/dL (3.5-5.0); BILIRUBIN,DIRECT 0.4 mg/dL (0.0-0.3); BILIRUBIN,TOTAL 0.8 mg/dL (0.2-1.0); MAGNESIUM 2.5 mg/dL (1.80-2.40); TOTAL PROTEIN, SERUM 5.1 g/dL (6.0-8.3)
[2020-06-06 10:22] LABS: BASOPHILS % (AUTO) 0.2 % (0.0-5.0); HEMATOCRIT 41.7 % (42-54); LYMPHOCYTES % (AUTO) 0.8 % (21.0-51.0); MEAN CORPUSCULAR HEMOGLOBIN 29.8 pg (27.0-33.0); MEAN CORPUSCULAR HGB CONC 32.1 g/dL (32.0-36.0); MEAN CORPUSCULAR VOLUME 92.7 fL (79-99); MONOCYTES % (AUTO) 2.4 % (3.0-13.0); NEUTROPHILS % (AUTO) 95.4 % (40.0-77.0); PLATELET COUNT (AUTO) 190 K/uL (130-400); RED CELL DISTRIBUTION WIDTH 14.6 % (11.0-15.5)
[2020-06-06 10:40] LABS: INR 1.61 (0.85-1.15); PROTHROMBIN TIME 17.1 SEC (9.6-11.6)
[2020-06-06] MEDS: ZINC SULFATE 220 CAPSULE PO SCH (11:57)
[2020-06-06 12:32] LABS: PARTIAL THROMBOPLASTIN TIME > 120.0 SEC (26.3-35.5)
[2020-06-06] MEDS: LINEZOLID 600 MG/ISO-OSM 300 ML IV SCH (14:26)
[2020-06-06] MEDS: VASOPRESSIN 20 UNITS in SODIUM CHLORIDE 0.9% 100 ML IV SCH (14:26)
[2020-06-06] MEDS: FENTANYL 2500MCG+NS 250ML 250 ML IV PRN (14:27)
[2020-06-06] MEDS: CEFEPIME HCL 2 GM VIAL IVP SCH (14:27)
[2020-06-06] MEDS: MIDAZOLAM 50MG-0.9% NS 50ML 50 ML IV SCH (14:28)
[2020-06-06] MEDS: NOREPINEPHRINE 4MG/NS 250ML 250 ML IV SCH (14:28)
[2020-06-06] MEDS: HEPARIN 25000 UNITS/250 ML D5W 250 ML IV SCH (14:30)
[2020-06-06] MEDS ORDERED: REMDESIVIR (EUA) 520 100 MG VIAL IV ONE (16:00)
--- NOTE | 2020-06-06 17:30 | NUR ---
THIS NURSE SPOKE W/ ABOUT DECLINING CONDITION. THIS NURSE EDUCATED SPOUSE ON ALL OPTIONS. REQUESTED CARE TO BE WITHDRAWN. THIS NURSE VERBALIZED UNDERSTANDING. REQUESTED TO VISIT AND SAY GOODBYE BEFORE CARE IS WITHDRAWN. THIS NURSE VERBALIZED UNDERSTANDING AND SPOKE W/RFID MANAGER TO SET UP ARRANGEMENT FOR TO SAY GOODBYE.
[2020-06-06] MEDS: REMDESIVIR (EUA) 520 100 MG in SODIUM CHLORIDE 0.9% 250 ML IV SCH (18:21)
--- NOTE | 2020-06-06 20:20 | NUR ---
Consent obtained from to with draw care and extubate.
--- NOTE | 2020-06-06 21:10 | NUR ---
pt extubated to a non rebreather.
--- NOTE | 2020-06-06 21:40 | NUR ---
Notified Nataliia aden's that he is and where would they like to send the body. said she would call back with the information.
== END 2020-06-06 21:21 | disposition expired | DRG 871 ==
LOC: EDH 18:07 → EDHIP 20:53 → 2AH 05-30 00:01 → EDHIP 05-30 00:59 → 4CH 05-30 02:06 → 2CH 06-05 10:45
PROVIDERS: ADMIT Hospitalist; ATTEND Hospitalist
PROC: 5A09457 Assistance with Respiratory Ventilation, 24-96 Consecutive Hours, Continuous Positive Airway Pressure (ICD-10-PCS; 2020-05-28)
PROC: 5A09357 Assistance with Respiratory Ventilation, Less than 24 Consecutive Hours, Continuous Positive Airway Pressure (ICD-10-PCS; 2020-05-31)
PROC: 5A09357 Assistance with Respiratory Ventilation, Less than 24 Consecutive Hours, Continuous Positive Airway Pressure (ICD-10-PCS; 2020-06-01)
PROC: 5A09357 Assistance with Respiratory Ventilation, Less than 24 Consecutive Hours, Continuous Positive Airway Pressure (ICD-10-PCS; 2020-06-02)
PROC: 5A09357 Assistance with Respiratory Ventilation, Less than 24 Consecutive Hours, Continuous Positive Airway Pressure (ICD-10-PCS; 2020-06-03)
PROC: 5A1945Z Respiratory Ventilation, 24-96 Consecutive Hours (ICD-10-PCS; 2020-06-05)
PROC: 0BH17EZ Insertion of Endotracheal Airway into Trachea, Via Natural or Artificial Opening (ICD-10-PCS; 2020-06-05)
PROC: 5A12012 Performance of Cardiac Output, Single, Manual (ICD-10-PCS; 2020-06-05)
PROC: 30233K1 Transfusion of Nonautologous Frozen Plasma into Peripheral Vein, Percutaneous Approach (ICD-10-PCS; principal; 2020-06-06)
DX: A41.89 Other specified sepsis (principal); U07.1 COVID-19; J96.01 Acute respiratory failure with hypoxia; J12.89 Other viral pneumonia; R65.21 Severe sepsis with septic shock; N17.0 Acute kidney failure with tubular necrosis; E87.2 Acidosis; M62.82 Rhabdomyolysis; E87.1 Hypo-osmolality and hyponatremia; I13.0 Hypertensive heart and chronic kidney disease with heart failure and stage 1 through stage 4 chronic kidney disease, or unspecified chronic kidney disease; D68.59 Other primary thrombophilia; I48.92 Unspecified atrial flutter; I50.32 Chronic diastolic (congestive) heart failure; T79.7XXA Traumatic subcutaneous emphysema, initial encounter; G93.1 Anoxic brain damage, not elsewhere classified; I46.9 Cardiac arrest, cause unspecified; E87.5 Hyperkalemia; I48.91 Unspecified atrial fibrillation; J45.909 Unspecified asthma, uncomplicated; K75.89 Other specified inflammatory liver diseases; Z66 Do not resuscitate; K42.9 Umbilical hernia without obstruction or gangrene; N18.9 Chronic kidney disease, unspecified; E11.22 Type 2 diabetes mellitus with diabetic chronic kidney disease; B96.89 Other specified bacterial agents as the cause of diseases classified elsewhere; R53.81 Other malaise; E66.9 Obesity, unspecified; Z68.30 Body mass index [BMI] 30.0-30.9, adult; Y93.89 Activity, other specified; Y92.89 Other specified places as the place of occurrence of the external cause; Y99.8 Other external cause status; Z79.01 Long term (current) use of anticoagulants; Z79.899 Other long term (current) drug therapy
CPT/HCPCS: 31500; 36415; 36430; 36600; 71045; 80048; 80053; 80061; 80076; 81001; 82435; 82550; 82570; 82728; 82803; 82947; 82948; 83036; 83605; 83615; 83735; 83874; 83880; 84100; 84132; 84145; 84156; 84295; 84443; 84484; 85018; 85025; 85027; 85378; 85610; 85730; 86140; 86850; 86900; 86901; 86927; 87040; 87077; 87088; 87186; 87486; 87581; 87633; 87798; 87804; 92950; 93005; 93306; 93970; 94002; 94003; 94660; 99291; G0378; J0360; J0456; J0692; J0696; J1644; J1650; J1940; J2020; J2920; J2930; J3010; J3490; J7030; J7040; J7050; P9017; U0003